=== PATIENT | female | born 1940 | race Caucasian/White ===

== ENCOUNTER 2021-05-27 11:07 | Emergency (ER) | payer MEDICARE, BC ==
[~2021-05-27] VITALS: Ht 162.6 cm; Wt 72.0 kg
[2021-05-27 12:02] VITALS: BP 109/61
[2021-05-27] MEDS ORDERED: CEPH250T PO (12:10)
[2021-05-27] MEDS ORDERED: SULF1TAB45 PO (12:10)
== END 2021-05-27 12:19 | disposition home or self-care (01) ==
LOC: ER 11:08
DX: L03.113 Cellulitis of right upper limb (principal); Z88.1 Allergy status to other antibiotic agents; Z79.2 Long term (current) use of antibiotics; Z79.899 Other long term (current) drug therapy
CPT/HCPCS: 99283